=== PATIENT | female | born 1960 | race Caucasian/White ===

== ENCOUNTER → 2016-07-31 | Outpatient (CLI) | payer MEDICARE, OTHER ==
[2016-07-31 08:34] LABS: BUN/CREATININE RATIO 13 (0-10)
== END ==
LOC: MRI 07:43
PROVIDERS: Internal Medicine Geriatric Medicine
DX: E78.4 Other hyperlipidemia (principal); M54.6 Pain in thoracic spine
CPT/HCPCS: 36415; 72157; 80053; A9577

== ENCOUNTER 2021-05-08 21:10 | Emergency (ER) | payer MEDICARE ==
[~2021-05-08 21:10] MED LIST: AMLODIPINE BESYL5 MG PO; BREO ELLIPTA 11 EACH INH; BUSPIRONE HCL10 MG PO; CALCIUM + VITA1 EACH PO; CARBIDOPA-LEVO1 EAC6 PO; CLARITIN-D 241 EACH PO; CYMBALTA60 MG PO; ESTRADIOL2 MG PO; IMITREX100 MG PO; INCRUSE ELLI62.5 MCG INH; LOPRESSOR50 MG PO; MOVANTIK25 MG PO; MYRBETRIQ50 MG PO; NORCO 10-325 T1 EACH PO; PLAVIX75 MG PO; PREVACID30 MG PO; PRINIVIL20 MG PO; PROVERA2.5 MG PO; PROVIGIL200 MG PO; RESTORIL15 MG PO; RISPERDAL3 MG PO; STOOL SOFTENER250 MG PO; ZANAFLEX4 MG PO
[2021-05-08 23:03] LABS: HEMOGLOBIN 12.8 gm/dl (12.3-15.3); RED BLOOD COUNT 4.26 M/UL (4.00-5.10); WHITE BLOOD COUNT 12.7 K/UL (4.5-11.0)
[2021-05-09] MEDS ORDERED: ZOFRAN 4 MG TAB4 MG PO (01:15)
== END 2021-05-09 01:11 | disposition home or self-care (01) ==
LOC: ER1 21:10
PROVIDERS: Physician Assistant
DX: R10.9 Unspecified abdominal pain (principal); G89.29 Other chronic pain; R11.0 Nausea; F31.9 Bipolar disorder, unspecified; K21.9 Gastro-esophageal reflux disease without esophagitis; Z79.01 Long term (current) use of anticoagulants
CPT/HCPCS: 80053; 80307; 81001; 83690; 85025; 87086; 99284

== ENCOUNTER 2021-06-05 20:49 | Emergency (ER) | payer MEDICARE ==
[~2021-06-05 20:49] MED LIST changes: +ZOFRAN 4 MG TAB4 MG PO
[2021-06-05 23:34] LABS: HEMOGLOBIN 12.8 gm/dl (12.3-15.3); RED BLOOD COUNT 4.32 M/UL (4.00-5.10); WHITE BLOOD COUNT 9.4 K/UL (4.5-11.0)
[2021-06-06 00:11] LABS: BUN/CREATININE RATIO 9 (0-10)
== END 2021-06-06 02:51 | disposition home or self-care (01) ==
LOC: ER1 20:49
PROVIDERS: Emergency Medicine
DX: R53.1 Weakness (principal); U09.9 Post COVID-19 condition, unspecified; E88.09 Other disorders of plasma-protein metabolism, not elsewhere classified; N18.9 Chronic kidney disease, unspecified; K21.9 Gastro-esophageal reflux disease without esophagitis; G20 Parkinson's disease
CPT/HCPCS: 80053; 82550; 82553; 83605; 83690; 84439; 84443; 84484; 85025; 93005; 96374; 96375; 99284; J2270; J2405